=== PATIENT | male | born 1940 | race Caucasian/White ===

== ENCOUNTER 2020-08-13 12:03 | Emergency (ER) | payer MEDICARE, SELFPAY ==
[2020-08-13 12:05] VITALS: BP 135/78; PULSE 91; RESP 16; TEMP 36.4; O2SAT 91; BMI 29.0
[2020-08-13] MEDS: morphine 10 MG/ML Syringe IM (12:28)
--- NOTE | 2020-08-13 13:03 | ED.VIS.BACK ---
History of Present Illness Informant: Patient Onset: Month(s) - 4 months Context: Gradual Onset Injury: Bending Timing: Continuous Quality: Sharp Location: Lumbar, Buttock, Right Leg Current Severity: Severe Maximum Severity: Severe Worsened by: improves with: Movement, Ambulation, Bending Relieved by: Remaining Still Associated Symptoms: Radiation to Right Leg Narrative: 80-year-old male presents with low back pain that radiates down to the right leg. He has been dealing with this pain for over 3 months. He has been seeing his doctor. He is on [place]. He has an MRI scheduled for Saturday of this coming week. However he wants the MRI done at this time. He wants to know what is going on. He denies any trauma, weakness or paresthesias, loss of bowel or bladder function, difficulty urinating or constipation. No fevers. No abdominal pain. No vomiting or diarrhea. Is other review of systems are negative Prior similar symptoms: Yes, With Prior Back Pain Recent Illness/Hospitalization: No <Francisco Javier Richardson - Last Filed: 08/13/20 13:58> <Mireya Dejesus - Last Filed: 08/13/20 22:12> Chief Complaint: Back Past Medical History Prior records reviewed: Yes Past Medical History: - - Hypertension Surgical History: no surgical history Lives: With Family Smoking Status: Never smoker Alcohol: None Drugs: None <Francisco Javier Richardson - Last Filed: 08/13/20 13:58> <Mireya Dejesus - Last Filed: 08/13/20 22:12> - Allergies and Home Meds Allergies/Adverse Reactions: Allergies acetaminophen [From Vicodin] Adverse Reaction (Verified 08/13/20 12:04) Upset Stomach hydrocodone [From Vicodin] Adverse Reaction (Verified 08/13/20 12:04) Upset Stomach Primary Care Physician: Wiley Pompa MD [Primary Care Provider] - As soon as possible Review of Systems All systems negative except as indicated General: Denies: Chills, Fever, Sweats Eyes: Denies: Visual changes - bilaterally, Diplopia ENT: Denies: Rhinorrhea, Sore throat Cardiovascular: Denies: Chest pain, Palpitations Respiratory: Denies: Dyspnea, Cough, Dyspnea on exertion Gastrointestinal: Denies: Abdominal pain, Nausea, Vomiting, Diarrhea, Melena, Hematochezia Genitourinary: Denies: Dysuria, Hematuria, Frequency Musculoskeletal: Reports: Back pain. Denies: Myalgias, Arthralgias, Neck pain, Swelling, Extremity Pain Skin: Denies: Rash, Wounds Neurological: Denies: Headache, Weakness, Numbness <Francisco Javier Richardson - Last Filed: 08/13/20 13:58> Physical Exam Vital Signs/Narrative: Vital Signs Temp Pulse Resp BP Pulse Ox 08/13/20 12:05 97.6 F L 91 16 135/78 H 91 Inital Vital Signs reviewed: Yes General: Well nourished, Well developed Head: Normocephalic, Atraumatic Eyes: Perrl, EOMI ENT: Moist mucous membranes, No rhinorrhea Neck: Supple, Nontender Cardiovascular: Regular rate, Regular rhythm, No murmurs Respiratory: No distress, CTA bilaterally, Chest nontender Abdomen: Soft, Nontender, Nondistended, Normal bowel sounds Back: Normal Inspection, Paraspinal Tenderness, Positive SLR - Right, Negative SLR - Left, - - Patient has right-sided back pain on palpation paraspinal and over the SI joint. Straight leg raise positive on right negative on left. DP and PT pulses are 2+ and symmetrical both lower extremities. He has normal strength testing at 5 out of 5 for both lower extremities. He is ambulatory. Extremeties: Nontender, No edema Skin: Normal color, No rash Neuro: Alert, Oriented, Normal Strength, Normal Sensation, Normal DTR, Normal Gait, Normal Reflexes Psychological: Normal affect, Normal Mood <Francisco Javier Richardson - Last Filed: 08/13/20 13:58> Diagnostic/Tx/Re-eval - Medical Decision Making I reviewed the patient's records from [place] he had a CT of his spine yesterday and the day before that had an x-ray of his lumbar spine. Arthritic changes but no other acute findings. Patient is stable vital signs. Neurologic exam is nonfocal. He has no signs or symptoms of cauda equina syndrome. At this time we do not feel the patient needs emergent MRI. His MRI is already scheduled for Saturday. It is currently Saturday. He was reassured. He will continue his Medrol pack. He is on [place] from his doctor that he will continue. He already has Lidoderm patches as well. He was given a dose of morphine here intramuscular and will follow up with his doctor he will continue to rest and ice and return for worsening symptoms which were discussed with the patient and he agrees. <Francisco Javier Richardson - Last Filed: 08/13/20 13:58> - Medical Decision Making Patient seen and evaluated with KRISTEN. I agree with above. Patient has a history of chronic back pain and is currently in pain management and having this evaluated further. He has an MRI scheduled for Saturday. He has a normal neurologic exam. He is already on steroids as well as [place] for pain control. Patient is given a dose of IM morphine for pain control does have improvement of his symptoms. He is able to ambulate. He does not have findings consistent with cauda equina syndrome I do not think he needs an emergent MRI. Patient is counseled on return precautions and signs/symptoms of cauda equina syndrome. He does not have any acute neurologic deficits I think he is stable for outpatient follow-up. Patient is agreeable with this plan of care. <Mireya Dejesus - Last Filed: 08/13/20 22:12> ED Disposition <Francisco Javier Richardson - Last Filed: 08/13/20 13:58> <Mireya Dejesus - Last Filed: 08/13/20 22:12> - Plan for ED Patient: Disposition: Home or Assisted Living Diagnosis: Acute back pain Instructions: ED Back Pain Acute or Chronic Referrals: Wiley Pompa MD [Primary Care Provider] - As soon as possible
[2020-08-13 13:34] VITALS: BP 129/74; PULSE 68; RESP 15; O2SAT 94
[2020-08-13 14:03] VITALS: BP 132/74; PULSE 62; RESP 16; O2SAT 97
== END 2020-08-13 14:19 | disposition home or self-care (01) ==
PROVIDERS: Emergency Provider Physician Assistant Medical; PCP Internal Medicine Infectious Disease
DX: M54.9 Dorsalgia, unspecified (principal); I10 Essential (primary) hypertension; Z88.5 Allergy status to narcotic agent; G89.29 Other chronic pain
CPT/HCPCS: 96372; 99284

== ENCOUNTER 2021-10-30 16:17 | Outpatient (CLI) | payer MEDICARE, SELFPAY | END 2021-10-30 23:59 | disposition short-term general hospital (02) | LOC: LABSPEC 16:19 | PROVIDERS: Visit Provider Physician Assistant | DX: R05.9 Cough, unspecified (principal); R50.9 Fever, unspecified | CPT/HCPCS: 87635; U0003; U0005 ==

== ENCOUNTER 2024-08-28 09:00 | Outpatient (RCR) | payer MEDICARE, SELFPAY ==
--- NOTE | 2024-07-15 10:53 | HP.PTEVAL_ITS ---
Patient's Visit Information Visit Information Visit Information: REESE LOPEZ is a 84 year old M referred to Physical Therapy by Dr. 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 Date of Evaluation: 07/15/24 Physical Therapist: Jaswant Silveira, DPT, OCS, CSCS Visit Plan Frequency: 2x /Week Duration: 4-6 Weeks Plan: 2x/week for 4-6 weeks for (h/o MICHAEL L posterior approach) 1. MH and ROm to L hip (stretch quad and HS) and hip ROM exercises 2. teach HEP strength core, hips knees and general and progress to I at home, focus should be on getting to I home strength program IE: HEP stationary bike 5+ min 3x/day and walk with walker 1-2x/day for fitness and activity on pavement. Subjective Subjective: present. Pain in L hip and has been there a while. had L MICHAEL in 2019 after original in 2011. Original fell apart and caused him pain and inability to walk . 2020 replacement doesn't feel right b/c it is painful on posterior L hip. Results were OK but still painful for the whole 4 yrs but the last year is worse. Tried ex 2 yrs ago which did not help. Worsening . Worse on feet adn gardening, not bad sitting. Not keeping him up at night. Uses pain patches. doctor said stem is too tight. Actvities: avoids walking for fun or fitness, easier on blacktop but not on uneven ground. Can walk 1/2 mile or 1/4 mile. No cane or walker but has them. Basic ADLs : dresses sefl, bathroom and shower I. Hobbies: volunteering at [employer] as they allow him to sit., retired from [employer]. says [employer]. Wants to get back on feet. HEP: supine leg movements, AP, ex bike, steps on purpose for ex. step ups hurt and done them for a few years. Pain L posterior hip: Pain Intensity (Out of 10): 4 Pain Intensity Range: 0 and 8 Comment: intermittent. gardening bending adn on feet Objective Objective: L posterior hip. Walks with short steps and slight L trednelenberg but I. balance is fair+ on stable surface. Romberg eo 3-0 adn ec 30 with some wobble. transfer chair requires UE, bed is I. Steps are reciprocal without pain this am but pulling with hands as much as pushing with legs, hard to lift L foot onto steps piriformis and psoas adn HS all max tight and poor movement B. reflexes 2/3 patella and achilles B Sendation to leigh slight touch WNL B LE. strength hip flexion L 3+ and R 4-, abd 4- B, ext 3 B, knee flexion 4- and ext 4- B. ankles 4 B. Balance/Special Test Scores Functional Gait Assessment Score: 22 % Disability: 26.6700 Lower Extremity Functional Score: 32 Goals Goal 1:: I appropriate home strength program for core, hips and general strength Goal Time Frame: 4-6 Weeks Goal 2:: Pain in hip 2/10 at worst and 50% improved. Goal Time Frame: 4-6 Weeks Goal 3:: Walk and on feet for 30 minutes without increased pain Goal Time Frame: 4-6 Weeks Goal 4:: lefs 45 Goal Time Frame: 4-6 Weeks Rehabilitation Potential Physical Therapy Diagnosis: tightness weakness L hip limiting comfortable funciton Rehabilitation Potential: Fair Anticipated Interventions Patient/Client Instruction: Educate patient on: Condition and Plan of Care For the Purpose of:: To decrease pain, To increase ROM, To improve nutrient delivery to tissue, To improve muscle performance and motor function and To improve gait and locomotor functions Therapeutic Exercise to Include: Strength training, Postural training, Flexibilty training, Passive ROM and Active ROM For the Purpose of:: To decrease pain, To increase ROM, To improve nutrient delivery to tissue, To improve muscle performance and motor function, To increase tolerance to activity/condition/position and To improve gait and locomotor functions Manual Therapy Techniques to Include: Mobilization, Passive ROM and Soft tissue mobilization For the Purpose of:: To decrease pain and To increase ROM Text: Thank you for the opportunity to evaluate your patient. For Medicare and Medicare HMO plans, please review the plan of care and approve it. It will need to be FAXED BACK to us at [phone] for Medicare purposes. For Medicare only, by signing this I certify the plan of care. Please let me know if there are questions or concerns regarding this plan of care. Physician Signature: Date:
--- NOTE | 2024-08-28 09:26 | HP.PTDCSUM ---
Discharge Summary D/C summary: It has been my pleasure to treat REESE LOPEZ referred by Dr. 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 Discharge Date: 08/28/24 Please see the following information for a summary of their discharge status. Subjective Subjective: Therapy is going great. Joint pain in L hip is returning since the one week of meds was helpful. Exxercises are good at home. L hip pain at rest 6/10 and 6/10. To doctor Dec 4 Emanuel. may need reconstruction or have to live with it. Pt leaning toward reconstruction. Wakes up at 3 am with pain after about 5-6 hours of sleep. Taking tylenol and using gel. Doing HEP daily and can continue. Strength feels back. Pain is the big issue. Pain L posterior hip: Pain Intensity (Out of 10): 6 Overall Improvement % Improvement: 50 Objective Objective/Function: Walking with L antalgia and 6/10 pain. steps lacks FW weight shift and weak B but painful with L, requires rails. Says ex are his main activity due to pain. Looking forward to other options from doctor as pain has returned after initial improvement after meds. Goals Goal 1:: I appropriate home strength program for core, hips and general strength Goal Progress: Goal Met Goal 2:: Pain in hip 2/10 at worst and 50% improved. Goal Progress: Not Progressing Goal 3:: Walk and on feet for 30 minutes without increased pain Goal Progress: Not Progressing Goal 4:: lefs 45 Goal Progress: Not Progressing Plan Plan: d/c to HEp and pt to f/u with doctor. D/C Information Discharge Comments: Pt to continue HEP and f/u with doctor for other options regarding returning and frustrating pain. d/c sentence: If there are questions or concerns regarding this patient's physical therapy, please feel free to call me at [phone]. Thank you for the referral of this patient. Sincerely, Jaswant Silveira, DPT, OCS, CSCS Balance/Gait/Functional tests Balance/Special Test Scores Functional Gait Assessment Score: 22 % Disability: 26.6700 Lower Extremity Functional Score: 30 Improvement % Improvement: 50
== END 2024-08-28 13:24 | disposition home or self-care (01) ==
LOC: PT 09:00
PROVIDERS: Referring Provider Specialist; Visit Provider Specialist
DX: T84.84XD Pain due to internal orthopedic prosthetic devices, implants and grafts, subsequent encounter (principal); I10 Essential (primary) hypertension; Z09 Encounter for follow-up examination after completed treatment for conditions other than malignant neoplasm
CPT/HCPCS: 97110; 97161; 97530

== ENCOUNTER 2025-03-29 07:49 | Outpatient (RCR) | payer MEDICARE, SELFPAY ==
[2025-03-29 08:32] VITALS: BP 121/80; PULSE 91; RESP 18; TEMP 36.4; BMI 25.8
--- NOTE | 2025-03-29 09:30 | HP.PCM_ITS ---
History of Present Illness Date of Service: 03/29/25 History of Wound: The patient is an 84-year-old male presenting with sacral pressure ulcers and a left anterior siegel laceration. He has a history of hip pain due to a tight hip replacement, leading to bursitis, which has restricted his mobility. This limited mobility has contributed to the development of pressure ulcers and a siegel laceration. The sacral pressure ulcers are intact but red, and the patient was referred for wound management to facilitate healing before a hip injection. The left anterior siegel laceration occurred from a scrape while climbing onto a tractor, measuring 1 x 1 cm and 0.1 cm deep, with granulation tissue at the base. The patient is using hydrogel wound gel for treatment. Additionally, the patient has a ganglion cyst on the left foot and lower extremity edema, which may be causing water blisters. Attestation: Documentation on this patient encounter was supported using ambient scribe technology/ voice AI technology. The patient consented to recording for the purpose of documenting the encounter. Provider reviewed content of the generated note prior to signature. [facility] Medical History (Updated 03/29/25 @ 09:[address] Ankur Birch MD) Wound of sacral region Gout Home Medications Medication Instructions Recorded Last Taken Type ketorolac 30 mg/mL injection 30 mg IM ONCE pain (scale score 04/06/21 Unknown Clinic syringe 7-10) #1 mL albuterol sulfate 90 mcg/actuation 1 inh inhalation Q6 H PRN shortness 10/30/21 Unknown Rx aerosol inhaler (ProAir HFA) of breath or wheezing #6. 7 grams alprazolam 0.5 mg tablet 0.5 mg PO TID PRN PRN anxiet y 03/29/25 Unknown History atenolol 50 mg tablet 50 mg PO 03/29/25 Unknown Hi story doxepin 10 mg capsule 10 mg PO QHS 03/29/25 Unknow n History furosemide 20 mg tablet 20 mg PO BID 03/29/25 Unknow n History Allergy/AdvReac Type Severity Reaction Status Date / Time acetaminophen (From Vicodin) AdvReac Upset Verified 03/29/25 08:18 Stomach hydrocodone (From Vicodin) AdvReac Upset Verified 03/29/25 08:18 Stomach Social History Smoking Status: Never smoker alcohol intake: never ROS ROS Narrative - Musculoskeletal: Reports hip pain, limited mobility - Integumentary: Reports sacral pressure ulcers, left anterior siegel laceration, water blisters on lower extremities Vital Signs Vital Signs Vital Signs: 03/29/25 08:32 Temperature 97.5 F L Temperature Source Temporal Pulse Rate 91 Respiratory Rate 18 Blood Pressure 121/80 H Blood Pressure Mean 93 Blood Pressure Source Monitor Blood Pressure Position Sitting Blood Pressure Location Left Arm Oxygen Delivery Method Room Air Weight Weight: 165 lb Body Mass Index (BMI) 25.8 Physical Exam Narrative - Skin: Slight redness at the superior aspect of the gluteal cleft, no wounds, no draining sinuses, no fluid collections. No HS or pressure sores. - Cardiovascular: 2+ dorsalis pedis pulses on the left foot - Musculoskeletal: Left anterior siegel wound, 1 x 1 cm, 0.1 cm deep, with granulation tissue at the base Debridement Note Debridement Note Post-Debridement Measurements and Additional Note: Post-Debridement Measurements/Treatment - Nurse 1 - General Ulcer Assessment Start: 03/29/25 08:11 Freq: Status: Active Protocol: LIAM Activity Type Activity Date Activity User E-sign Co-sign Detail Recorded Client Recorded Date Recorded By Document 03/29/25 08:32 [id number] 03/29/25 08:35 KW 03/29/25 08:32 - Today's Visit Information Type of service Initial Visit Arrival Mode Ambulatory Accompanied by Patient Identification Verified (Name & Yes ) Height and Weight Height 5 ft 7 in Weight 165 lb Weight in Pounds 165.0 lbs Weight Measurement Method Estimated by Patient Body Mass Index (BMI) 25.8 BMI Classification Overweight Vital Signs Temperature (97.8 F-99.1 F) 97.5 F L Temperature Source Temporal Pulse Rate (60-100) 91 Pulse Location Monitor Respiratory Rate (12-18) 18 Respiratory rate source Observation Oxygen Delivery Method Room Air Blood Pressure (90/60-120/80) 121/80 H Blood Pressure Mean 93 Source Monitor Position Sitting Blood Pressure Location Left Arm History Since Last Visit- (Skip if this is Patient's initial visit) Left Footwear Regular Shoe Right Footwear Regular Shoe Pain Scale: 0-10 Numeric Is Patient Pain Free? Yes Communication Assessment Preferred language Persian Leather Staker Required No Able to Read Yes Able to Write Yes Caregiver Communication Skills No Impairment Impairment Right Hearing Abillity Use of Hearing Aid Left Hearing Abillity Use of Hearing Aid Visual Assistive Devices Glasses Functional Assessment Recent Decline in Ability to Perform Denies Any Declines Culture/Pentecostal/Print Line Supervisor Cultural/Pentecostal Needs that may affect No Treatment Plan Would you allow our hospital information technology specialist to No meet you for the purpose of spiritual/ emotional support? Print Line Supervisor to contact place of gnosticist No WC - Nurse 1 - General Ulcer Measurement Start: 03/29/25 08:11 Freq: Status: Active Protocol: Activity Type Activity Date Activity User E-sign Co-sign Detail Recorded Client Recorded Date Recorded By Document 03/29/25 08:32 KW [id number] 03/29/25 08:35 KW 03/29/25 08:32 Wound Center Nurse 1 #1 LT SIEGEL -Current Size (cm) - Length 1.5 -Current Size (cm) - Width 1 -Current Size (cm) - Depth 0.1 -Total Square Cm 1.5 -Date of Last Picture (Recall this 03/29/25 field) -Exudate Amt Medium -Exudate Type Serosanguineous -Wound Margin Distinct, Outline Attached -Granulation Amt Large (67-100%) -Granulation Quality Red -Texture (Kalie-wound Skin Appearance) Assessed, Localized Edema ,Rash -Moisture (Kalie-wound Skin Appearance) Assessed -Color (Kalie-wound Skin Appearance) Assessed, Erythema -Temperature (Kalie-wound Skin No Abnormality Appearance) (Pt Warm) -Tenderness on Palpation (Kalie-wound No Skin Appearance) -Ulcer Cleansing Soap and Water -Foul Odor after Cleansing No -Anesthetic Used 5% Lidocaine Gel -Wound Comment(s) INTACT WATER BLISTERS WC - Nurse 2 - General Ulcer CM Notes Start: 03/29/25 08:11 Freq: Status: Active Protocol: Activity Type Activity Date Activity User E-sign Co-sign Detail Recorded Client Recorded Date Recorded By Document 03/29/25 08:52 DS [id number] 03/29/25 08:53 DS 03/29/25 08:52 Wound Center Nurse 2 -Time 08:52 -Correct Patient Yes -Correct Side, Site, Position Yes -Post Debridement (cm) - Length 1.0 -Post Debridement (cm) - Width 1.0 -Post Debridement (cm) - Depth 0.1 -Total Square (Post) (cm) 1.00 -Area of Debridement (cm) - Length 1.0 -Area of Debridement (cm) - Width 1.0 -Total Square (Area) (cm) 1.00 -Tunneling No -Undermining/Tunneling No -Circular Undermining No -Wound/Ulcer Outcome Not Healed Pain Scale: 0-10 Numeric Is Patient Pain Free? Yes - Nurse 3 - General Ulcer D/C NN Start: 03/29/25 08:11 Freq: Status: Active Protocol: Activity Type Activity Date Activity User E-sign Co-sign Detail Recorded Client Recorded Date Recorded By Document 03/29/25 09:03 DL [id number] 03/29/25 09:08 DL 03/29/25 09:03 Wound Care Center Nurse 3 #1 LT SIEGEL -Ulcer Cleansing Rinsed/ Irrigated with Saline -Primary Dressing Applied C Hydrogel -Primary Dressing Covered/Secured with Dry Gauze & Roll Gauze, Secured with Tape -Hydrogel 1 -Wound Comment(s) DISCHARGED Treatment Response Procedure Tolerated Well Pain Scale: 0-10 Numeric Is Patient Pain Free? Yes WC - Visit Discharge Discharge Condition Stable Ambulatory Status Ambulatory Transportation Private Auto Accompanied by Charges/Coding Visit Charges Office Visits / Consults: [id number] OV L3 New 30min Assessment/Plan Assessment/Plan (1) Wound of sacral region: CODE(S): S31.000A - Unspecified open wound of lower back and pelvis without penetration into retroperitoneum, initial encounter PLAN: The sacral pressure ulcers are currently intact but red. The patient should continue with pressure offloading and wound care to promote healing. (2) Leg wound, left: CODE(S): S81.802A - Unspecified open wound, left lower leg, initial encounter PLAN: The patient is instructed to apply hydrogel wound gel daily and cover the laceration with a Band-Aid to promote healing. PLAN: Plan The bursitis is being managed conservatively, and the patient is awaiting a hip injection to alleviate symptoms. - Apply hydrogel wound gel to the left siegel laceration daily and cover with a Band-Aid. - Continue pressure offloading for sacral pressure ulcers. - Attend the scheduled hip injection appointment on April 23 (or sooner as the wounds have healed).
--- NOTE | 2025-03-30 13:44 | WC ---
PHOTO 03/29/25 RIGHT ISCHIUM
--- NOTE | 2025-03-30 13:48 | WC ---
PHOTO 03/29/25 LEFT TEJADA
--- NOTE | 2025-04-01 09:56 | WC ---
Called Dr. Thompson office to inform them that the pt was seen at the Wound Center on 03/29/[address] Birch. Pt wound was healed and he was able to to hip injection.
== END 2025-04-05 23:59 | disposition home or self-care (01) ==
LOC: WC 07:49
PROVIDERS: PCP Internal Medicine Infectious Disease; Visit Provider Surgery Plastic and Reconstructive Surgery
DX: S31.000A Unspecified open wound of lower back and pelvis without penetration into retroperitoneum, initial encounter (principal); S81.812A Laceration without foreign body, left lower leg, initial encounter; M67.472 Ganglion, left ankle and foot; R60.0 Localized edema
CPT/HCPCS: 99213; G0463